=== PATIENT | male | born 1985 ===

== ENCOUNTER 2021-06-05 12:22 | Emergency (ER) | payer OTHER ==
[2021-06-05 14:29] VITALS: BP 131/85
== END 2021-06-06 13:21 | disposition left against medical advice (07) ==
LOC: ED 12:22
DX: R51.9 Headache, unspecified (principal); Z53.21 Procedure and treatment not carried out due to patient leaving prior to being seen by health care provider

== ENCOUNTER 2021-06-06 10:35 | Emergency (ER) | payer MEDICAID ==
[2021-06-06 10:58] VITALS: BP 137/99
[2021-06-06] MEDS ORDERED: SODIUM CHLORIDE 0.9% 1000 ML 1,000 ML IV ONE (12:34)
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
[2021-06-06 13:42] LABS: Mean Corpuscular HGB Conc 31 % (32-34); Mean Corpuscular Volume 82 fl (84-94); Platelet Count 311 K/mm3 (140-440); Red Cell Distribution Width 14.6 % (13.2-15.2)
[2021-06-06 13:47] LABS: Hematocrit 47.3 % (35.5-45.6); Hemoglobin 14.5 gm/dl (11.8-15.2)
[2021-06-06 14:49] LABS: Alanine Aminotransferase 17 units/L (7-56); Albumin 4.9 g/dL (3.9-5); BUN/Creatinine Ratio 8; Blood Urea Nitrogen 8 mg/dL (9-20); Calcium 10.5 mg/dL (8.4-10.2); Hemolysis Index 5
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
[2021-06-06 16:17] LABS: Bilirubin,Urine NEG (Negative); Blood,Urine NEG (Negative); Color,Urine Yellow (Yellow); Hyaline Casts,Urine 1 /LPF; Mucus,Urine 1+ /HPF; Protein,Urine <15 mg/dL mg/dL (Negative); WBC,Urine < 1.0 /HPF (0.0-6.0)
--- NOTE | 2021-06-07 11:32 | Electrocardiograph Report ---
[facility] Test Date: 2021-06-06 Test Time: 14:28:20 Pat Name: MAXWELL AMAYA Department: Room: Gender: M Painter Set: BHARAT : 1985 Requested By: GILBERT CAPONE Order Number: [id number] Reading MD: Kristopher Pop Measurements Intervals [place] Rate: 78 P: 59 AR: 141 QRS: 62 QRSD: 89 T: 41 QT: 362 QTc: 412 Interpretive Statements Sinus rhythm ST elev, probable normal early repol pattern No previous ECG available for comparison Electronically Signed On 06-07-2021 10:44:01 EDT by Kristopher Pop
== END 2021-06-06 16:53 | disposition home or self-care (01) ==
LOC: ED 10:35
DX: F07.81 Postconcussional syndrome (principal); Z79.899 Other long term (current) drug therapy; V87.7XXA Person injured in collision between other specified motor vehicles (traffic), initial encounter; Y93.89 Activity, other specified; Y92.488 Other paved roadways as the place of occurrence of the external cause; Y99.8 Other external cause status
CPT/HCPCS: 36415; 70450; 71250; 72125; 80053; 81001; 82550; 85027; 93005; 99284; J7030; Q0162